=== PATIENT | male | born 1975 | race Caucasian/White ===

== ENCOUNTER 2018-10-17 08:07 | Emergency (ER) | payer SELFPAY ==
--- NOTE | 2018-10-17 08:21 | EKG ---
[address] [address] Test Date: 2018-10-17 Test Time: 08:20:47 Pat Name: YOSELYN MCCLURE Department: Room: Gender: M Construction Safety Manager: : 1975 Requested By: IRA CASIANO Order Number: [id number] Reading MD: Measurements Intervals [place] Rate: 61 P: 81 GA: 162 QRS: 87 QRSD: 100 T: 74 QT: 390 QTc: 398 Interpretive Statements SINUS RHYTHM R-S TRANSITION ZONE IN V LEADS DISPLACED TO THE LEFT OTHERWISE NORMAL ECG RI6.01 No previous ECG available for comparison
[2018-10-17] MEDS ORDERED: IV NORMAL SALINE 1,000ML 1,000 ML IV ONE (08:45)
[2018-10-17 08:49] LABS: ALBUMIN/GLOBULIN RATIO 1.1 (1.0-1.7); CALCIUM 9.2 mg/dL (8.5-10.1); CREATININE 1.7 mg/dL (0.7-1.3); POTASSIUM 3.8 mmol/L (3.5-5.1); TOTAL BILIRUBIN 0.6 mg/dL (0.2-1.0); TOTAL PROTEIN 7.6 g/dL (6.4-8.2)
[2018-10-17 09:02] LABS: BASO # 0.2 x10^3/uL (0.0-0.2); BASO % 3 % (0-3); EOS # 0.1 x10^3/uL (0.0-0.7); EOS % 2 % (0-3); HEMATOCRIT 45.9 % (39.0-53.0); HEMOGLOBIN 15.8 g/dL (13.0-17.5); LYMPH # 1.2 x10^3/uL (1.0-4.8); LYMPH % 18 % (24-48); MEAN CORPUSCULAR HEMOGLOBIN 30 pg (25-35); MEAN CORPUSCULAR HGB CONC 34 g/dL (31-37); MEAN CORPUSCULAR VOLUME 87 fL (79-100); MONO # 0.8 x10^3/uL (0.0-1.1); MONO % 12 % (0-9); NEUT # 4.5 x10^3uL (1.8-7.7); NEUT % 65 % (31-73); PLATELET COUNT 240 x10^3/uL (140-400); WHITE BLOOD COUNT 6.9 x10^3/uL (4.0-11.0)
--- NOTE | 2018-10-17 09:07 | RAD ---
CHEST AP ONLY Clinical Indication: Altered mental status Comparison: None. Findings: Frontal views of the chest were obtained. Exam is limited as the lateral left bony thorax was not fully included. The cardiomediastinal silhouette is normal. There is no pneumothorax. No pleural effusion is appreciated. Levo convexity of the thoracic spine noted. IMPRESSION: No acute cardiopulmonary process. Electronically signed by: Salvador Yang MD (10/17/2018 9:04 AM) [facility] [place]
--- NOTE | 2018-10-17 09:08 | RAD ---
Examination: SHOULDER 2+V LEFT History: Pain Comparison/Correlation: None Findings: Total 3 images of the left shoulder were obtained. Exam is limited due to patient positioning especially on the scapular Y view. Joint spaces are normal. No acute fracture or bony destruction. Soft tissues are grossly unremarkable. Nonspecific mild thickening of the proximal to mid humeral cortex laterally is present. No definite destructive finding noted. No degenerative change. Impression: No acute process. Electronically signed by: Salvador Yang MD (10/17/2018 9:05 AM) [facility]
[2018-10-17] MEDS ORDERED: NALOXONE 0.4 MG/ML VIAL. IV ONE (10:45)
[2018-10-17 11:16] LABS: AMPHETAMINE/METHAMPHETAMINE POS (NEG); BARBITURATES NEG (NEG); BENZODIAZEPINES NEG (NEG); CANNABINOIDS NEG (NEG); COCAINE NEG (NEG); METHADONE NEG (NEG); OPIATES NEG (NEG); PHENCYCLIDINE NEG (NEG)
[2018-10-17 11:20] LABS: AMORPHOUS SEDIMENT,UR PRESENT /HPF; BACTERIA,URINE 0 /HPF (0-FEW); BILIRUBIN,URINE NEG (NEG); CLARITY,URINE CLEAR; COLOR,URINE AMBER; GLUCOSE,URINE NEG (NEG); HYALINE CASTS, URINE OCC /HPF; NITRITE,URINE NEG (NEG); RBC,URINE 0 /HPF (0-2); SQUAMOUS EPITHELIAL CELL,UR OCC /LPF; UROBILINOGEN,URINE 0.2 mg/dL (0.2 mg/dL); WBC,URINE 0 /HPF (0-4)
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
[2018-10-17 12:00] VITALS: BP 100/64
== END 2018-10-17 11:55 | disposition short-term general hospital (02) ==
LOC: ER 08:07
DX: F15.10 Other stimulant abuse, uncomplicated (principal); M25.512 Pain in left shoulder; R41.82 Altered mental status, unspecified
CPT/HCPCS: 36415; 71045; 73030; 80053; 80307; 81001; 84484; 85025; 93005; 96361; 96374; 99285; G0480; J2310; J7030

== ENCOUNTER 2020-03-15 06:30 | Emergency (ER) | payer SELFPAY ==
[~2020-03-15] VITALS: Ht 182.9 cm; Wt 68.8 kg
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
[2020-03-15 07:00] VITALS: BP 110/70
[2020-03-15] MEDS ORDERED: IV NORMAL SALINE 1,000ML 1,000 ML IV ONE (07:00)
--- NOTE | 2020-03-15 07:43 | RAD ---
CHEST AP ONLY INDICATION: Reason: ALTERED MENTAL STATUS / Spl. Instructions: / History: . COMPARISON STUDY: None. FINDINGS: Lungs: Normal lung volume. No pulmonary mass or consolidation. The tracheobronchial tree and hilar structures are normal. Pleura: No pleural effusion or pneumothorax. Heart and Mediastinum: The cardiomediastinal silhouette is normal. The great vessels of the thorax are normal. Bones and Soft Tissues: The bones and soft tissues are within normal limits. IMPRESSION: No acute cardiopulmonary process. Electronically signed by: Anton Rebollar MD (03/15/2020 7:40 AM) [id number]
[2020-03-15 07:45] LABS: BASO # 0.1 x10^3/uL (0.0-0.2); BASO % 1 % (0-3); EOS # 0.2 x10^3/uL (0.0-0.7); EOS % 3 % (0-3); HEMATOCRIT 42.3 % (39.0-53.0); HEMOGLOBIN 13.9 g/dL (13.0-17.5); LYMPH # 1.3 x10^3/uL (1.0-4.8); LYMPH % 19 % (24-48); MEAN CORPUSCULAR HEMOGLOBIN 29 pg (25-35); MEAN CORPUSCULAR HGB CONC 33 g/dL (31-37); MEAN CORPUSCULAR VOLUME 89 fL (79-100); MONO # 0.7 x10^3/uL (0.0-1.1); MONO % 10 % (0-9); NEUT # 4.4 x10^3uL (1.8-7.7); NEUT % 67 % (31-73); PLATELET COUNT 203 x10^3/uL (140-400); RED BLOOD COUNT 4.76 x10^6/uL (4.30-5.70); RED CELL DISTRIBUTION WIDTH 13.3 % (11.5-14.5); WHITE BLOOD COUNT 6.6 x10^3/uL (4.0-11.0)
[2020-03-15 07:49] LABS: CALCIUM 8.8 mg/dL (8.5-10.1); CREATININE 1.1 mg/dL (0.7-1.3); GFR 72.4; POTASSIUM 3.5 mmol/L (3.5-5.1)
[2020-03-15 07:51] LABS: ALBUMIN 3.6 g/dL (3.4-5.0); ALBUMIN/GLOBULIN RATIO 1.2 (1.0-1.7); TOTAL BILIRUBIN 0.4 mg/dL (0.2-1.0); TOTAL PROTEIN 6.7 g/dL (6.4-8.2)
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
--- NOTE | 2020-03-15 15:15 | EKG ---
[address] [address] Test Date: 2020-03-15 Test Time: 07:35:05 Pat Name: YOSELYN MCCLURE Department: Room: Gender: M Service Captain: YANET : 1975 Requested By: LESLEY ALVARADO Order Number: [id number] Reading MD: Alex Fallon Measurements Intervals [place] Rate: 66 P: [place]: QRS: 88 QRSD: 100 T: 69 QT: 404 QTc: 425 Interpretive Statements SINUS RHYTHM Electronically Signed On 03-19-2020 10:54:22 AIRLINE ATTENDANT by Alex Fallon
== END 2020-03-15 09:18 | disposition home or self-care (01) ==
LOC: ER 06:30
DX: F41.9 Anxiety disorder, unspecified (principal); E86.0 Dehydration; R20.2 Paresthesia of skin; F15.10 Other stimulant abuse, uncomplicated; F43.12 Post-traumatic stress disorder, chronic
CPT/HCPCS: 36415; 70450; 71045; 72125; 80053; 82550; 83690; 85025; 93005; 96360; 99285; G0480; J7030

== ENCOUNTER 2020-08-04 11:41 | Emergency (ER) | payer OTHER ==
[~2020-08-04] VITALS: Ht 182.9 cm; Wt 68.8 kg
[2020-08-04] MEDS ORDERED: ONDANSETRON PF 4 MG/2 ML VIAL. IVP ONE (12:00)
[2020-08-04] MEDS ORDERED: IV NORMAL SALINE 1,000ML 1,000 ML IV ONE (12:00)
--- NOTE | 2020-08-04 12:03 | PHYS DOC ---
Past History Past Medical History: Anxiety (APRIL DICKERSON APRN) Past Surgical History: Other (APRIL DICKERSON APRN) Alcohol Use: Occasionally (APRIL DICKERSON APRN) Adult General Chief Complaint Chief Complaint: CHEST PAIN HPI HPI Patient is a 44-year-old male presents emergency department and Police [employer] part[employer] custody with complaints of right-sided anterior chest pain that he states started this morning when he woke up. Patient states it is a 2/10 on a 1-10 pain scale. Patient denies any radiation of this pain. Denies any diaphoretic episodes. Patient does complain of shortness of breath. Denies nausea, vomiting, diarrhea, or abdominal pains. Denies chest congestion or kacie al congestion. Denies throat pain, visual deficits, or dizziness. States that he smoked methamphetamine yesterday. Patient states that he is not a daily user. Patient denies any illicit drug use today. Patient denies drinking any alcohol today. Patient states he smokes cigarettes and drinks alcohol occasionally. Patient denies any allergies to medications, states he takes no prescription medications at home, states that he had right femur surgery years ago for a fracture. Patient denies any recent illnesses, denies any recent fever or chills, denies being around anybody ill, denies recent travel, denies having a COVID-19 virus vaccination this year. Patient denies any other physical complaints or physical concerns. Local [facility] department deputy at bedside, states that he was called out to scene, was alerted by a concerned citizen as patient was found sleeping in car at a private residence. (APRIL DICKERSON APRN) Review of Systems Review of Systems 14 body systems of review of systems have been reviewed. See HPI for pertinent positives and negative responses, otherwise all other systems are negative, nonpertinent or noncontributory. (APRIL DICKERSON APRN) Current Medications Current Medications Current Medications Medications (Trade) Dose Ordered Sig/Mukesh Start Time Stop Time Status Last Admin Dose Admin Ondansetron HCl (Zofran) 4 mg 1X ONCE 08/04/20 12:00 08/04/20 12:01 DC Sodium Chloride 1,000 ml @ 1,000 mls/hr 1X ONCE 08/04/20 12:00 08/04/20 12:59 (APRIL DICKERSON APRN) Allergies Allergies Allergies Coded Allergies Type Severity Reaction Last Updated Verified No Known Drug Allergies 03/15/20 No (APRIL DICKERSON APRN) Physical Exam Physical Exam Constitutional: Well developed, well nourished, no acute distress, non-toxic appearance. 44-year-old male, lies still when there is no interaction with p atient however does develop body tremors when patient is answering questions or Zickel examination has been performed. HENT: Normocephalic, atraumatic, bilateral external ears normal, oropharynx moist, no oral exudates, nose normal. Oropharynx pink, moist, no infectious process appreciated, no trismus, no drooling, no lymphadenopathy of the head or neck appreciated. Eyes: PERRLA, EOMI, conjunctiva normal, no discharge. Neck: Normal range of motion, no tenderness, supple, no stridor. No midline spinal tenderness, no nuchal rigidity, no meningismus signs appreciated. Cardiovascular:Heart rate regular rhythm, no murmur, heart sounds S1-S2 thousand patient. Lungs & Thorax: Bilateral breath sounds clear to auscultation all lung miller, no adventitious lung sounds appreciated, no increased pain with palpation of the anterior thorax. Abdomen: Bowel sounds normal, soft, no tenderness, no masses, no pulsatile masses. Skin: Warm, dry, no erythema, no rash. Back: No tenderness, no CVA tenderness. Extremities: No tenderness, no cyanosis, no clubbing, ROM intact, no edema. Di stal cap refill less than 2 seconds, +2/4 pulses. Neurologic: Alert and oriented X 3, normal motor function, normal sensory function, no focal deficits noted. Psychologic: Affect normal, judgement normal, mood normal. (APRIL DICKERSON APRN) Current Patient Data Vital Signs Vital Signs Date Time Temp Pulse Resp B/P (MAP) Pulse Ox O2 Delivery O2 Flow Rate FiO2 08/04/20 11:41 110 14 117/75 (89) 100 Room Air Lab Results Laboratory Tests Test 08/04/20 12:00 08/04/20 12:04 08/04/20 13:18 Ethyl Alcohol Level (Legal) Specimen drawn White Blood Count 5.4 x10^3/uL Red Blood Count 5.07 x10^6/uL Hemoglobin 14.8 g/dL Hematocrit 44.0 % Mean Corpuscular Volume 87 fL Mean Corpuscular Hemoglobin 29 pg Mean Corpuscular Hemoglobin Concent 34 g/dL Red Cell Distribution Width 14.0 % Platelet Count 223 x10^3/uL Neutrophils (%) (Auto) 69 % Lymphocytes (%) (Auto) 19 % Monocytes (%) (Auto) 9 % Eosinophils (%) (Auto) 2 % Basophils (%) (Auto) 0 % Neutrophils # (Auto) 3.7 x10^3uL Lymphocytes # (Auto) 1.0 x10^3/uL Monocytes # (Auto) 0.5 x10^3/uL Eosinophils # (Auto) 0.1 x10^3/uL Basophils # (Auto) 0.0 x10^3/uL Sodium Level 143 mmol/L Potassium Level 4.7 mmol/L Chloride Level 107 mmol/L Carbon Dioxide Level 32 mmol/L Anion Gap 4 Blood Urea Nitrogen 22 mg/dL Creatinine 1.2 mg/dL Estimated GFR (Cockcroft-Gault) 65.5 BUN/Creatinine Ratio 18 Glucose Level 113 mg/dL Calcium Level 9.4 mg/dL Total Bilirubin 0.3 mg/dL Aspartate Amino Transf (AST/SGOT) 17 U/L Alanine Aminotransferase (ALT/SGPT) 24 U/L Alkaline Phosphatase 50 U/L Troponin I Quantitative < 0.017 ng/mL Total Protein 7.2 g/dL Albumin 3.8 g/dL Albumin/Globulin Ratio 1.1 Urine Collection Type U cath Urine Color Yellow Urine Clarity Hazy Urine pH 7.0 Urine Specific [place] 1.025 Urine Protein Neg Urine Glucose (UA) Neg mg/dL Urine Ketones (Stick) Neg mg/dL Urine Blood Neg Urine Nitrite Neg Urine Bilirubin Neg Urine Urobilinogen Dipstick 0.2 mg/dL Urine Leukocyte Esterase Neg Urine RBC Occ /HPF Urine WBC Occ /HPF Urine Squamous Epithelial Cells Occ /LPF Urine Bacteria 0 /HPF Urine Opiates Screen Neg Urine Methadone Screen Neg Urine Barbiturates Neg Urine Phencyclidine Screen Neg Urine Amphetamine/Methamphetamine Pos Urine Benzodiazepines Screen Neg Urine Cocaine Screen Pos Urine Cannabinoids Screen Neg Urine Ethyl Alcohol Neg Current Medications Medications (Trade) Dose Ordered Sig/Mukesh Route PRN Reason Start Time Stop Time Status Last Admin Dose Admin Sodium Chloride 1,000 ml @ 1,000 mls/hr 1X ONCE IV 08/04/20 12:00 08/04/20 12:59 DC 08/04/20 12:10 Ondansetron HCl (Zofran) 4 mg 1X ONCE IVP 08/04/20 12:00 08/04/20 12:01 DC 08/04/20 12:10 Ketorolac Tromethamine (Toradol 30mg Vial) 30 mg 1X ONCE IVP 08/04/20 12:45 08/04/20 12:56 DC 08/04/20 12:47 (APRIL DICKERSON APRN) EKG EKG EKG performed at 1152 by house respiratory therapy staff, shows heart rate of 65 bpm, normal sinus rhythm without ectopy, OK interval 0.12, QTc interval 0.413, no acute STEMI, no ACS, no acute ischemia appreciated, EKG did show muscle tremor artifact, EKG interpreted by ED attending physician Dr. Rahman. (APRIL DICKERSON APRN) Radiology/Procedures Radiology/Procedures PATIENT: YOSELYN MCCLURE ACCOUNT: [id number] : 1975 LOCATION: ER AGE: 44 SEX: M EXAM STATUS: REG ER ORD. PHYSICIAN: MIGUEL RAHMAN DO REASON: Overdose PROCEDURE: CHEST AP ONLY XR CHEST 1V History: Reason: Overdose / Spl. Instructions: / History: Comparison: March 15, 2020 Findings: No consolidation or pleural effusion. Normal heart size. No pneumothorax. Impression: 1. No acute cardiopulmonary process. Electronically signed by: Ashley Blanc DO (08/04/2020 12:35 PM) [facility] DICTATED AND SIGNED BY: ASHLEY BLANC DO DATE: 08/04/20 1234 CC: MIGUEL RAHMAN DO; PCP,NO ~MTH0 0 (APRIL DICKRESON APRN) Heart Score C/O Chest Pain: Yes HEART Score for Chest Pain: HEART Score for Chest Pain Response (Comments) Value History Slighlty/Non-Suspicious 0 ECG Normal 0 Age >45 - < 65 1 Risk Factors 1 or 2 Risk Factors 1 Troponin < Normal Limit 0 Total 2 Risk Factors: Risk Factors: DM, Current or recent (<one month) smoker, HTN, HLP, family history of CAD, obesity. Risk Scores: Risk Factors: DM, Current or recent (<one month) smoker, HTN, HLP, family history of CAD, obesity. (APRIL DICKERSON APRN) Course & Med Decision Making Course & Med Decision Making Pertinent Labs and Imaging studies reviewed. (See chart for details) 44-year-old male, vital signs reviewed, presents emergency department complaining of right sided anterior chest pain that started when he woke up this morning. Physical examination was unremarkable, patient is in PD custody at this time, suspicious for illicit drug use, a cardiorespiratory work-up was initiated in the emergency department, urinalysis assay with urine drug screen. X-ray negative for acute pulmonary process, EKG nonconcerning, troponin negative, serum labs equivocal, his urine was not infected, urine drug screen negative for alcohol, positive for cocaine and methamphetamines. Discussed smoking cessation with patient, discussed cessation of illicit drug use specifically cocaine and methamphetamines, discussed health side effects for ongoing illicit drug use. Patient gave verbal understanding of this. ED plan will discharge patient to home. Patient denies chest pain at this time, pain to chest most likely musculoskeletal chest wall pain. Patient remains nontoxic in appearance. Patient is clinically sober. Patient HEART score equals 2. Patient gave verbal understanding of discharge home instructions, smoking cessation, illicit drug use cessation, return to ER precautions or concerns, follow-up with primary care for ongoing aches and pains, patient was discharged home without incident. Diagnosis: Musculoskeletal chest wall pain. (APRIL DICKERSON APRN) Dragon Disclaimer Dragon Disclaimer This electronic medical record was generated, in whole or in part, using a voice recognition dictation system. (APRIL DICKERSON APRN) Attending Co-Sign The patient was seen and interviewed as well as examined at the bedside. The chart was reviewed. The case was discussed. Agree with the plan of care. (MIGUEL RAHMAN DO) Departure Departure: Impression: Primary Impression: Right-sided chest wall pain Disposition: 01 HOME / SELF CARE / HOMELESS Condition: GOOD Referrals: PCP,CALVIN (PCP) HANH SAM Patient Instructions: Chest Wall Pain Additional Instructions: You were seen today in the emergency department for chest pain. Your EKG did not show any concerning signs of heart problems, your chest x-ray did not show any concerning signs for heart problems or lung problems, there was no pneumonia or broken ribs appreciated as x-ray was interpreted by our house radiologist. The lab work we ashley today did not show any signs of infectious process or concerning signs that would indicate a need to be admitted to the hospital today. Your urine drug screen did show positive for methamphetamines and cocaine. We have discussed smoking cessation and illicit drug use cessation. We have discussed its side effects on the body with ongoing use. I have recommended that you follow-up with your primary care doctor tomorrow for ongoing pain. If you are unable to secure a appointment with your primary care doctor, I have provided a referral primary care provider, SRAVAN Vieira. Please call tomorrow for an appointment for ongoing aches and pains. Please return the emergency department for worsening symptoms or other concerns. You may use [id number] Tylenol and/or Motrin for ongoing aches and pains. EMERGENCY DEPARTMENT GENERAL DISCHARGE INSTRUCTIONS Thank you for coming to [facility] (ED) today and trusting us with you care. We trust that you had a positivie experience in our Emergency Department. If you wish to speak to the department management, you may call the director at [phone]. YOUR FOLLOW UP INSTRUCTIONS ARE FOLLOWS: 1. Do you have a private Doctor? If you do not have a private doctor, please ask for a resource list of physicians or clinics that may be able to assist you with follow up care. 2. The Emergency Physician has interpreted your x-rays. The X-Ray specialist will also review them. If there is a change in the findings, you will be notified in 48 h ours when at all possible. 3. A lab test or culture has been done, your results will be reviewed and you will be notified if you need a change in treatment. ADDITIONAL INSTRUCTIONS AND INFORMATION: 1. Your care today has been supervised by a physician who is specially trained in emergency care. Many problems require more than one evaluation for a complete diagnosis and treatment. We recommend that you schedule your follow up appointment as recommended to ensure complete treatment of you illness or injury. If you are unable to obtain follow up care and continue to have a problem, or if your condition worsens, we recommend that you return to the ED. 2. We are not able to safely determine your condition over the phone nor are we able to give sound medical advice over the phone. For these safety reasons, if you call for medical advice we will ask you to come to the ED for further evaluation. 3. If you have any questions regarding these discharge instructions please call the ED at [phone]. SAFETY INFORMATION: In the interest of safety, wellness, and injury prevention; we encourage you to wear your sealbelt, if you smoke; quite smoking, and we encourage family to use a protective helmet for bicycling and other sporting events that present an increased risk for head injury. IF YOUR SYMPTOMS WORSEN OR NEW SYMPTOMS DEVELOP, OR YOU HAVE CONCERNS ABOUT YOUR CONDITION; OR IF YOUR CONDITION WORSENS WHILE YOU ARE WAITING FOR YOUR FOLLOW UP APPOINTMENT; EITHER CONTACT YOUR PRIMARY CARE DOCTOR, THE PHYSICIAN WHOSE NAME AND NUMBER YOU WERE GIVEN, OR RETURN TO THE ED IMMEDIATELY. APRIL DICKERSON APRN Aug 04, 2020 12:03 MIGUEL RAHMAN DO Aug 05, 2020 07:49
[2020-08-04 12:17] LABS: BASO % 0 % (0-3); EOS # 0.1 x10^3/uL (0.0-0.7); EOS % 2 % (0-3); HEMOGLOBIN 14.8 g/dL (13.0-17.5); LYMPH % 19 % (24-48); MEAN CORPUSCULAR HEMOGLOBIN 29 pg (25-35); MEAN CORPUSCULAR HGB CONC 34 g/dL (31-37); MEAN CORPUSCULAR VOLUME 87 fL (79-100); MONO # 0.5 x10^3/uL (0.0-1.1); MONO % 9 % (0-9); NEUT # 3.7 x10^3uL (1.8-7.7); NEUT % 69 % (31-73); PLATELET COUNT 223 x10^3/uL (140-400); RED BLOOD COUNT 5.07 x10^6/uL (4.30-5.70); WHITE BLOOD COUNT 5.4 x10^3/uL (4.0-11.0)
[2020-08-04 12:25] LABS: CALCIUM 9.4 mg/dL (8.5-10.1); CREATININE 1.2 mg/dL (0.7-1.3); GFR 65.5; POTASSIUM 4.7 mmol/L (3.5-5.1)
[2020-08-04 12:31] LABS: ALBUMIN 3.8 g/dL (3.4-5.0); ALBUMIN/GLOBULIN RATIO 1.1 (1.0-1.7); TOTAL BILIRUBIN 0.3 mg/dL (0.2-1.0); TOTAL PROTEIN 7.2 g/dL (6.4-8.2)
--- NOTE | 2020-08-04 12:37 | RAD ---
XR CHEST 1V History: Reason: Overdose / Spl. Instructions: / History: Comparison: March 15, 2020 Findings: No consolidation or pleural effusion. Normal heart size. No pneumothorax. Impression: 1. No acute cardiopulmonary process. Electronically signed by: Boston Blanc DO (08/04/2020 12:35 PM) [facility]
[2020-08-04] MEDS ORDERED: KETOROLAC 30 MG/ML VIAL. IVP ONE (12:45)
[2020-08-04 13:43] LABS: BARBITURATES NEG (NEG); BENZODIAZEPINES NEG (NEG); CANNABINOIDS NEG (NEG); COCAINE POS (NEG); METHADONE NEG (NEG); OPIATES NEG (NEG); PHENCYCLIDINE NEG (NEG)
[2020-08-04 13:45] LABS: BILIRUBIN,URINE NEG (NEG); CLARITY,URINE HAZY; COLOR,URINE YELLOW; GLUCOSE,URINE NEG (NEG); NITRITE,URINE NEG (NEG); UROBILINOGEN,URINE 0.2 mg/dL (0.2 mg/dL)
[2020-08-04 13:46] LABS: BACTERIA,URINE 0 /HPF (0-FEW); RBC,URINE OCC /HPF (0-2); SQUAMOUS EPITHELIAL CELL,UR OCC /LPF; WBC,URINE OCC /HPF (0-4)
[2020-08-04 13:52] LABS: AMPHETAMINE/METHAMPHETAMINE POS (NEG)
[2020-08-04 14:12] VITALS: BP 112/58
--- NOTE | 2020-08-04 20:19 | EKG ---
[address] [address] Test Date: 2020-08-04 Test Time: 11:52:47 Pat Name: YOSELYN MCCLURE Department: Room: Gender: M Bus Mechanic: : 1975 Requested By: MIGUEL RAHMAN Order Number: [id number] Reading MD: Measurements Intervals [place] Rate: 65 P: CA: QRS: 85 QRSD: 98 T: 73 QT: 396 QTc: 413 Interpretive Statements IRREGULAR RHYTHM, NO P-WAVE FOUND OTHERWISE NORMAL ECG RI6.02 No previous ECG available for comparison
== END 2020-08-04 14:24 | disposition home or self-care (01) ==
LOC: ER 11:41
DX: R07.89 Other chest pain (principal); R06.02 Shortness of breath; F41.9 Anxiety disorder, unspecified
CPT/HCPCS: 36415; 71045; 80053; 80307; 81001; 84484; 85025; 93005; 96361; 96374; 96375; 99285; J1885; J2405; J7030